=== PATIENT | male | born 1955 | race Caucasian/White ===

== ENCOUNTER → 2016-08-01 | Outpatient (CLI) | payer BC ==
[2016-06-10 14:33] VITALS: BP 129/91
[~2016-08-01] MED LIST: AMLO10TA4 PO; DILT120C97 PO; RIVA20TA2 PO; VALS320T2 PO
--- NOTE | 2016-08-01 15:31 | CARD ---
APPROVED REPORT EXAM: Two-dimensional and M-mode echocardiogram with Doppler and color Doppler. Other Information Quality : AverageHR: 75bpm Rhythm : Atrial Fibrillation INDICATION Atrial Fibrillation 2D DIMENSIONS RVDd3.4 (2.9-3.5cm)Left Atrium(2D)4.3 (1.6-4.0cm) IVSd0.9 (0.7-1.1cm)Aortic Root(2D)2.8 (2.0-3.7cm) LVDd4.6 (3.9-5.9cm)LVOT Diameter2.3 (1.8-2.4cm) PWd0.8 (0.7-1.1cm)LVDs2.8 (2.5-4.0cm) FS (%) 33.0 %SV67.5 ml LVEF(%)65.0 (>50%) Aortic Valve AoV Peak Nikita.151.6cm/sAoV VTI27.7cm AO Peak GR.9.2mmHgLVOT Peak Nikita.105.1cm/s LVOT VTI 21.23cmAO Mean GR.5mmHg GERMANIA (VMAX)2.11io2FOF (VTI)3.17cm2 Pulmonary Valve PV Peak Habseegw12.9cm/sPV Peak Grad.3mmHg RVOT VTI14.5cm Tricuspid Valve TR P. Axecuruu235zx/sRAP AGLLIPIM7hmTt TR Peak Gr.[id number] LEFT VENTRICLE The left ventricle is normal size. There is normal left ventricular wall thickness. Left ventricle sy stolic function is normal. The Ejection Fraction is 60-65%. There is normal LV segmental wall motion. Unable to assess due to Atrial fibrillation There is no ventricular septal defect visualized. RIGHT VENTRICLE The right ventricle is normal size. The right ventricular systolic function is normal. ATRIA The left atrium is mildly dilated. The right atrium is mildly dilated. The interatrial septum is inta ct with no evidence for an atrial septal defect or patent foramen ovale as noted on 2-D or Doppler im aging. AORTIC VALVE The aortic valve is normal in structure and function. The aortic valve is trileaflet. Doppler and Col or Flow revealed no significant aortic regurgitation. There is no significant aortic valvular stenosi s. MITRAL VALVE The mitral valve is normal in structure and function. There is no evidence of mitral valve prolapse. There is no mitral valve stenosis. Doppler and Color Flow revealed no mitral valve regurgitation note d. TRICUSPID VALVE The tricuspid valve is normal in structure. Doppler and Color Flow revealed mild tricuspid regurgitat ion. There is moderate pulmonary hypertension. The PA pressure was estimated at 41 mmHg. PULMONIC VALVE The pulmonary valve is normal in structure. Doppler and Color Flow revealed mild pulmonic valvular re gurgitation. GREAT VESSELS The aortic root is normal in size. The ascending aorta is normal in size. Normal pulmonary venous chi w (Doppler). The IVC is normal in size and collapses >50% with inspiration. PERICARDIAL EFFUSION There is no pleural effusion. There is no evidence of significant pericardial effusion. Critical Notification Critical Value: No <Conclusion> Left ventricle systolic function is normal. The Ejection Fraction is 60-65%. There is normal LV segmental wall motion. The left atrium is mildly dilated. Mild tricuspid regurgitation. The PA pressure was estimated at 41 mmHg. There is no evidence of significant pericardial effusion.
== END | disposition home or self-care (01) ==
LOC: ECHO 07:36
PROVIDERS: ATTEND Physician Assistant Medical
DX: I48.91 Unspecified atrial fibrillation (principal); I27.2 Other secondary pulmonary hypertension; I07.1 Rheumatic tricuspid insufficiency; I37.1 Nonrheumatic pulmonary valve insufficiency
CPT/HCPCS: 93306

== ENCOUNTER 2016-10-06 10:12 | Day surgery (SDC) | payer BC ==
[~2016-10-06 10:12] MED LIST changes: +0.9 % SODIUM CHLORIDE 10 ML DISP.SYRIN. IV PRN; +HYDROmorphone 2 MG/ML VIAL IV PRN; +IV RINGERS,LACTATED 1000ML 1,000 ML IV SCH; +LIDOCAINE 1% 1 ML SYRINGE. ID PRN; +MORPHINE SULFATE 2 MG/ML DISP.SYRIN. IV PRN; +ONDANSETRON PF 4 MG/2 ML VIAL. IV PRN; +PROCHLORPERAZINE 10 MG/2 ML VIAL. IV PRN; +fentaNYL PF VIAL 100 MCG/2 ML VIAL IV PRN
--- NOTE | 2016-10-06 10:36 | EKG ---
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 NONSPECIFIC ST-T WAVE CHANGES. CONSISTENT WITH INFERIOR INFARCT AGE UNDETERMINED ABNORMAL ECG RI6.01 Electronically Signed On 10-11-2016 9:30:20 CDT by Shoaib Oliver
[2016-10-06] MEDS ORDERED: ASPI81TA2 PO (10:39)
[2016-10-06 10:59] LABS: CALCIUM 8.9 mg/dL (8.5-10.1); CREATININE 1.2 mg/dL (0.7-1.3); GFR 61.8; POTASSIUM 4.5 mmol/L (3.5-5.1)
[2016-10-06] MEDS ORDERED: LIDOCAINE 2% PF Vial for OR 5 ML VIAL. ONE (11:24)
[2016-10-06] MEDS ORDERED: PROPOFOL 20 ML IV ONE (11:24)
[2016-10-06 12:11] VITALS: BP 133/83
--- NOTE | 2016-10-06 13:30 | EKG ---
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1955 Requested By: SHOAIB OLIVER Order Number: [id number] Reading MD: Shoaib Oliver Measurements Intervals [place] Rate: 73 P: 132 ND: 206 QRS: 143 QRSD: 84 T: 142 QT: 402 QTc: 447 Interpretive Statements SINUS RHYTHM LOW LIMB LEAD VOLTAGE QRS(T) CONTOUR ABNORMALITY CONSISTENT WITH ANTEROSEPTAL INFARCT PROBABLY OLD T ABNORMALITY IN HIGH LATERAL LEADS ABNORMAL ECG RI6.01 Compared to ECG 06/10/2016 12:37:45 T-wave abnormality now present Atrial fibrillation no longer present Right-axis deviation no longer present Myocardial infarct finding still present Electronically Signed On 10-11-2016 9:30:42 CDT by Shoaib Oliver
--- NOTE | 2016-10-09 09:06 | PDOC4 ---
Operative Note Operative Note Cardioversion procedure note. The patient is a 60-year-old male who was found to be in atrial fibrillation several months ago. Patient was started on anticoagulation and has continued on anticoagulation for that more than 2 months. He was treated with rate control medications. Patient had persistent atrial fibrillation and a cardioversion was recommended. Risks and benefits were discussed with the patient and he has agreed to proceed with a cardioversion. After informed consent was obtained the patient was evaluated by the anesthesiology service. Appropriate sedation was obtained with their supervision. A single discharge of 360 J of synchronized energy converted the patient from atrial fibrillation to normal sinus rhythm. The patient awoke normally from anesthesia. He resumed his normal level of consciousness and was responsive to questions. Results were discussed with the patient and his family. Conclusion. Successful electrical cardioversion of atrial fibrillation to a normal sinus rhythm. DREW MARQUIS MD Oct 09, 2016 09:06
== END 2016-10-06 12:38 | disposition home or self-care (01) ==
LOC: SURG 10:12
PROVIDERS: ATTEND Internal Medicine Cardiovascular Disease
DX: I48.1 Persistent atrial fibrillation (principal); I10 Essential (primary) hypertension; E66.9 Obesity, unspecified; Z72.89 Other problems related to lifestyle; Z86.69 Personal history of other diseases of the nervous system and sense organs
CPT/HCPCS: 36415; 80048; 83735; 92960; 93005; J2704